=== PATIENT | male | born 1945 | race Caucasian/White ===

== ENCOUNTER 2024-02-13 13:05 | Emergency (ER) | payer MEDICARE, SELFPAY ==
[2024-02-13] VITALS (8 sets, daily range): BP systolic 138–181; BP diastolic 81–104; PULSE 90–115; RESP 18–25; TEMP 36.7–37.9; O2SAT 93–97; BMI 24.0
--- NOTE | 2024-02-13 | ECG_ITS ---
Test Reason : VOMITING/NAUSEA Blood Pressure : / mmHG Vent. Rate : 089 BPM Atrial Rate : 089 BPM P-R Int : 156 ms QRS Dur : 140 ms QT Int : 378 ms P-R-T Axes : 047 022 040 degrees QTc Int : 459 ms Normal sinus rhythm Right bundle branch block Cannot rule out Inferior infarct , age undetermined Abnormal ECG No previous ECGs available Referred By: Generic ED Physician Electronically Signed By:MELVI NUNEZ MD
--- NOTE | ~2024-02-13 | CT_ITS ---
CLINICAL HISTORY: pain, sbo CT abdomen and pelvis without contrast Comparison: None Findings: There is dependent lower lobe scarring or subsegmental atelectasis. There is a circumscribed homogeneous thin-walled exophytic lower pole right renal cortical 6.8 x 4.8 cm mass, possible Bosniak 1 cyst. Consider nonemergent renal sonography to further characterize. Otherwise unremarkable gallbladder and solid organs. No urolithiasis. No bowel obstruction, pneumoperitoneum, or pneumatosis. Pelvic contents unremarkable. Normal appendix. The bones are intact. IMPRESSION: No acute findings. This document has been electronically signed by: Papo Knapp MD on 02/13/2024 22:11:54
[2024-02-13 13:44] LABS: MANUAL DIFF FLAG NO
[2024-02-13 13:50] LABS: Basophils Percent Auto 0.5 % (0-2); Eosinophils Absolute Auto 0.1 X10*3/uL (0.0-0.4); Eosinophils Percent Auto 0.7 % (0-4); Hematocrit 44.5 % (42.0-52.0); Hemoglobin 15.1 g/dl (14.0-18.0); Imm Gran Abs Auto 0.03 X10*3/uL (0.00-0.03); Imm Gran Pct Auto 0.4 % (0.0-0.4); Lymphocytes Absolute Auto 0.6 X10*3/uL (1.2-4.9); Lymphocytes Percent Auto 8.4 % (20-40); Mean Corpuscular HGB Conc 33.9 g/dl (31.0-36.0); Mean Corpuscular Volume 88.3 fL (80.0-98.0); Mean Platelet Volume 11.2 fL (9.4-12.4); Monocytes Absolute Auto 0.6 X10*3/uL (0.1-1.2); Neutrophils Absolute Auto 6.3 x10*3/uL (2.0-8.3); Platelet Count 228 X10*3/uL (160-400); Red Blood Count 5.04 X10*6/uL (4.60-5.80); Red Cell Distribution Width 12.4 % (11.0-16.0); White Blood Count 7.6 X10*3/uL (4.8-10.8)
[2024-02-13 14:03] LABS: Alanine Aminotransferase 20 U/L (0-40); Albumin Level 4.3 g/dL (3.5-5.0); Alkaline Phosphatase 104 U/L (39-117); Anion Gap 17 (12-20); Aspartate Amino Transferase 27 U/L (5-37); Bilirubin Total 0.4 mg/dL (0.0-1.0); Blood Urea Nitrogen 27 mg/dL (9-16); Calcium 9.6 mg/dL (8.4-10.2); Carbon Dioxide 23 mmol/L (22-29); Chloride 101 mmol/L (96-108); Creatinine Clr Calc Pharmacy 49.9; Estimated Glomerular Filt Rate 51; Glucose Random 86 mg/dL (60-115); Sodium 137 mmol/L (135-145); Total Protein 7.5 g/dL (6.5-8.0)
[2024-02-13 14:13] LABS: Troponin-I High Sensitivity < 2.7 ng/L (<3.5-35.0)
[2024-02-13 14:31] LABS: Influenza A PCR POSITIVE (Negative); Influenza B PCR NEGATIVE (Negative); Resp Syncy Virus RNA Qual PCR NEGATIVE (Negative); SARS COV2 PCR INHOUSE NEGATIVE (Negative)
[2024-02-13] MEDS: ondansetron HCL 4 MG/2 ML VIAL IVPUSH (16:33)
[2024-02-13] MEDS: Acetaminophen 1,000 MG/100 ML PIGGYBACK 400 MG IV (16:33)
[2024-02-13] MEDS: 0.9 % Sodium Chloride 500 ML IV (16:33)
--- NOTE | 2024-02-13 17:58 | PC.NURSE ---
Patient admitted from [facility] via EMS for nausea/vomiting. While working with OT, pt stood and felt that he needed to go to bathroom, projectile vomited and had BM. Alert and oriented, EMS reported intermittent abdominal pain, pt denies pain. 20g IV to right forearm. BP and HR noted to be elevated at 1619, Gabby YARBROUGH aware, rectal temp obtained. Rectal temp 100.2, LINNEA Pierre aware, IVF and acetaminophen given as ordered.
[2024-02-13] MEDS: Diatrizoate Meglumine, Sodium 30 ML SOLUTION PO (18:07)
--- NOTE | 2024-02-13 19:12 | PC.NURSE ---
Pt alert, no signs of distress. Pt denies pain at this time. hob lowered for comfort Plan of care ongoing.
--- NOTE | 2024-02-13 21:26 | PC.NURSE ---
Pt with CT Plan of care ongoing.
--- NOTE | 2024-02-13 21:28 | PC.NURSE ---
Pt returned from CT. Plan of care ongoing.
--- NOTE | 2024-02-13 23:19 | PC.NURSE ---
Pt pressing call art by mistake, pt reports he was trying to understand the remote. Pt educated on the call art buttons. Pt denies pain at this time Plan of care ongoing.
[2024-02-14] VITALS: BP 146/91; PULSE 112; RESP 18; TEMP 36.4; O2SAT 93
--- NOTE | 2024-02-14 00:27 | PC.NURSE ---
This RN spoke with Bere RN at [facility] for nurse to nurse @ [phone] Plan of care ongoing.
--- NOTE | 2024-02-14 00:40 | ED.NAVMDI ---
HPI - Nausea/Vomiting/Diarrhea General Chief complaint: Nausea/Vomiting/Diarrhea Stated complaint: ABD PAIN,VOMITING FROM SNF PER EMS Time Seen by Provider: 02/13/24 16:12 Source: patient, EMS and RN notes reviewed Limitations: other (Cognitive impairment) History of Present Illness ED Provider: Kami Koch PA-C HPI Narrative: 78-year-old male with a history of diabetes, hypertension, orthostatic hypotension, chronic kidney disease, cognitive dysfunction presents from sniff with acute onset nausea vomiting. Patient was with OT, when he began projectile vomiting. Patient complains of abdominal pain. History limited as patient has underlying cognitive impairment. Related Data Allergies Allergy/AdvReac Type Severity Reaction Status Date / Time No Known Allergies Allergy Verified 02/13/24 13:26 Review of Systems Review of Systems: Unable to obtain secondary to cognitive impairment Yes all other systems are reviewed and are negative PMFSH Past Medical History Attestation statement: The following information was validated with the patient. Social History Social History Alcohol intake: never Smoked in Last 30 Days: No Use of substances other than those prescribed or required for medical reasons: No Advance Directives: No Advance Directives Information Provided: No Do you have a plan to hurt others: No Plan Physical Exam Vital Signs: Vital Signs: Last Vital Signs Temp 97.6 F 02/14/24 00:00 Pulse 112 H 02/14/24 00:00 Resp 18 02/14/24 00:00 BP 146/91 H 02/14/24 00:00 Pulse Ox 93 02/14/24 00:00 O2 Del Method Room Air 02/14/24 00:00 BMI result Body Mass Index 24.0 Const: Other: Sleeping, readily woken with verbal stimuli, Orientation/consciousness: oriented to person HEENT: Other: Dry oral mucosa Resp: Effort & Inspection: normal respiratory effort Cardio: Other: Normal peripheral perfusion GI: Other: Abdomen is soft, nondistended, generalized tenderness to palpation without guarding or focal regions of tenderness Skin: Other: Warm dry no rash Neuro: General: oriented to person Psych: Other: Cooperative Medications Administered Discontinued Medications Generic Name Dose Route Start Last Admin Trade Name Freq PRN Reason Stop Dose Admin Diatrizoate Meglum/Diatrizoate Sod 30 ml 02/13/24 18:07 02/13/24 18:07 Diatrizoate Meglumine, Sodium 30 Ml Solution PO 02/13/24 18:08 30 ml ONCE ONE Administration Sodium Chloride 500 mls @ 500 mls/hr 02/13/24 16:24 02/13/24 18:04 Ns IV 02/13/24 17:23 Infused .Q1H ONE Infusion Acetaminophen 1,000 mg in 100 mls @ 400 mls/hr 02/13/24 16:24 02/13/24 17:02 Ofirmev IV 02/13/24 16:38 Infused ONCE ONE Infusion Ondansetron HCl 4 mg 02/13/24 16:24 02/13/24 16:33 Ondansetron Hcl 4 Mg/2 Ml Vial IVPUSH 02/13/24 16:25 4 mg ONCE ONE Administration Medical Decision Making Medical Decision Making [facility] Narrative: 78-year-old male with a history of diabetes, hypertension, orthostatic hypotension, chronic kidney disease, cognitive dysfunction presents from sniff with acute onset nausea vomiting. Patient was with OT, when he began projectile vomiting. Patient complains of abdominal pain. History limited as patient has underlying cognitive impairment. Problem: Age, cognitive impairment, diabetes, chronic kidney disease History: Per sniff records and the patient which is limited I have considered the following differential diagnoses: Viral syndrome, viral gastroenteritis, acute intra-abdominal pathology, bowel obstruction Plan: Patient is not a reliable historian, given active GI symptoms, I am inclined to scan his abdomen. Patient states he thinks he had a bowel movement yesterday, perhaps he has an obstruction. We will be giving gentle fluid and antiemetic. Screening labs including a viral panel were obtained from triage he is also positive for flu a, which could be the cause of his symptoms. I have independently reviewed the following tests: Labs: No leukocytosis, not anemic, no electrolyte abnormality, flu A positive CT abdomen and pelvis:MPRESSION: No acute findings. This document has been electronically signed by: Papo Knapp MD on 02/13/2024 22:11:54 Lab Data 02/13/24 13:36 02/13/24 13:36 Labs: Lab Results 02/13/24 02/13/24 Range/Units 13:36 13:39 WBC 7.6 (4.8-10.8) X10*3/uL RBC 5.04 (4.60-5.80) X10*6/uL Hgb 15.1 (14.0-18.0) g/dl Hct 44.5 (42.0-52.0) % MCV 88.3 (80.0-98.0) fL MCH 30.0 (27.0-33.0) pg MCHC 33.9 (31.0-36.0) g/dl RDW 12.4 (11.0-16.0) % Plt Count 228 (160-400) X10*3/uL MPV 11.2 (9.4-12.4) fL Immature Gran % (Auto) 0.4 (0.0-0.4) % Neut % (Auto) 82.0 H (45-73) % Lymph % (Auto) 8.4 L (20-40) % [place] % (Auto) 8.0 (2-11) % Eos % (Auto) 0.7 (0-4) % Baso % (Auto) 0.5 (0-2) % Lymph # (Auto) 0.6 L (1.2-4.9) X10*3/uL [place] # (Auto) 0.6 (0.1-1.2) X10*3/uL Eos # (Auto) 0.1 (0.0-0.4) X10*3/uL Baso # (Auto) 0.0 (0.0-0.2) X10*3/uL Abs Immat Gran (auto) 0.03 (0.00-0.03) X10*3/uL Absolute Neuts (auto) 6.3 (2.0-8.3) x10*3/uL Absolute Nucleated RBC 0.000 (0.0-0.012) X10*3/uL Nucleated RBC % (auto) 0.0 (0.0-0.2) /100WBC Hold Purple Top SEE NOTE Hold Blue Top SEE NOTE Sodium 137 (135-145) mmol/L Potassium 4.0 (3.3-5.1) mmol/L Chloride 101 (96-108) mmol/L Carbon Dioxide 23 (22-29) mmol/L Anion Gap 17 (12-20) BUN 27 H (9-16) mg/dL Creatinine 1.36 (0.5-1.4) mg/dL Estim Creat Clear Calc 49.9 Estimated GFR 51 Random Glucose 86 (60-115) mg/dL Calcium 9.6 (8.4-10.2) mg/dL Total Bilirubin 0.4 (0.0-1.0) mg/dL AST 27 (5-37) U/L ALT 20 (0-40) U/L Alkaline Phosphatase 104 (39-117) U/L Troponin I High Sens < 2.7 (<3.5-35.0) ng/L Total Protein 7.5 (6.5-8.0) g/dL Albumin 4.3 (3.5-5.0) g/dL Influenza Type A (PCR) POSITIVE A (Negative) Influenza Type B (PCR) NEGATIVE (Negative) RSV RNA Qual (PCR) NEGATIVE (Negative) SARS-CoV-2 RNA (RT-PCR) NEGATIVE (Negative) Discharge Plan Discharge Clinical Impression: Influenza A Patient Disposition: Home, Self-Care Instructions: Influenza (ED) Additional Instructions: The patient was found to be positive for influenza A. CT scan of the abdomen was obtained, there was no acute abnormality. Screening labs were obtained, there were no additional acute abnormalities. See home care instructions. The patient follow up with the his primary care provider as needed. Print Language: Estonian
[2024-02-14 02:00] VITALS: BP 159/76; PULSE 105; RESP 16; TEMP 36.4; O2SAT 97
[2024-02-14 04:13] VITALS: BP 160/87; PULSE 99; RESP 14; TEMP 37; O2SAT 98
== END 2024-02-14 04:13 | disposition home or self-care (01) ==
PROVIDERS: Emergency Provider Emergency Medicine; PCP Physician Assistant Medical
DX: J10.1 Influenza due to other identified influenza virus with other respiratory manifestations (principal); R11.2 Nausea with vomiting, unspecified; R10.2 Pelvic and perineal pain; I45.10 Unspecified right bundle-branch block; R94.31 Abnormal electrocardiogram [ECG] [EKG]; Z03.818 Encounter for observation for suspected exposure to other biological agents ruled out; Z79.899 Other long term (current) drug therapy
CPT/HCPCS: 0241U; 36415; 74176; 80053; 84484; 85025; 93005; 96361; 96365; 96375; 99285; J0131; J2405

== ENCOUNTER → 2024-02-13 13:33 | Outpatient (BNV) | payer MEDICARE, SELFPAY | PROVIDERS: Emergency Provider Emergency Medicine; PCP Physician Assistant Medical; Visit Provider Internal Medicine Cardiovascular Disease | DX: R94.31 Abnormal electrocardiogram [ECG] [EKG] (principal) | CPT/HCPCS: 93010 ==

== ENCOUNTER → 2024-02-13 17:03 | Outpatient (BNV) | payer MEDICARE, SELFPAY | PROVIDERS: Emergency Provider Emergency Medicine; PCP Physician Assistant Medical; Visit Provider Specialist | DX: R10.9 Unspecified abdominal pain (principal) | CPT/HCPCS: 74176 ==